=== PATIENT | male | born 1975 | race African-American/Black ===

== ENCOUNTER 2020-08-07 08:43 | Emergency (ER) | payer BC ==
[~2020-08-07] VITALS: Ht 188 cm; Wt 145.2 kg
[2020-08-07] MEDS ORDERED: AMOXICILLIN 50500 MG PO (09:02)
[2020-08-07] MEDS ORDERED: NORCO 5-325 TA1 EAC2 PO (09:02)
[2020-08-07 09:17] VITALS: BP 178/95
== END 2020-08-07 09:23 | disposition home or self-care (01) ==
LOC: M.ERS 08:43
DX: K04.7 Periapical abscess without sinus (principal)